=== PATIENT | male | born 1975 | race Caucasian/White ===

== ENCOUNTER 2024-08-27 18:13 | Emergency (ER) | payer OTHER ==
[~2024-08-27] VITALS: Ht 177.8 cm; Wt 84.1 kg
[2024-08-27 18:15] VITALS: TEMP 97.8
--- NOTE | 2024-08-27 18:45 | Physician Documentation ---
History of Present Illness ~ Chief Complaint: Head Injury Stated Complaint: W/C HEAD LAC Time Seen by MD: 18:44 OK to notify your PCP?: Yes Primary Medical Doctor: NONE HPI Patient presents to the emergency room with head laceration to his scalp after striking a door while getting up into a work vehicle. No loss of consciousness. No vomiting. Tetanus reported to be within the last five years. Denies neck pain. No other injuries Tetanus within 5 years?: No Medication Reconciliation Allergies: Coded Allergies: No Known Allergies (Unverified , 04/25/16) Past Medical History Past Medical History: No Pertinent History Past Surgical History: noncontributory Drug Use: none Lives with: Family Lives In: Home Occupation: employed Review of Systems ROS All review of systems negative except as per HPI Physical Exam Vital Signs: Temperature: 97.8, Source: Temporal, Heart Rate: 89, Respiratory Rate: 18, BP: 153/87, Pulse Oximetry: 98, Weight: 84.090 Physical Exam General: Patient is awake, alert, oriented x4 in no acute distress and well appearing.~ Head: Normocephalic with 8 cm full-thickness laceration to the right scalp with no active bleeding Eyes: Conjunctival normal. EOMI. PERRL. ENT: Mucous membranes moist. No floyd signs no raccoon eyes no hemotympanum no rhinorrhea Neck: Supple, trachea is midline. No cervical midline tenderness Chest: Clear to auscultation bilaterally without rales, rhonchi, or wheezes. There is no accessory muscle use or retractions. Cardiac: RRR without murmurs, gallops, or rubs. Procedures Procedures Laceration repair: Status post informed verbal consent patient was sterilely cleaned and draped. 1% lidocaine with epinephrine was utilized to anesthetize laceration using 3 cc. Patient's wound was thoroughly irrigated with sterile saline. Seven agnela placed to approximate wound edges. Patient tolerated procedure well without complication. Total time of procedure 7 minutes. Progress Results/Orders Results/Orders Vital Signs 08/27/24 08/27/24 08/27/24 18:15 18:48 18:50 Temp 97.8 Pulse 89 77 Resp 18 15 B/P (MAP) 153/87 127/84 (98) Pulse Ox 98 97 O2 Flow Rate 0 Medical Decision Making Findings Patient presented to the emergency room with head laceration as per HPI. Differentials include but are not limited to laceration, fracture, intracranial bleed such as epidural bleed, subdural bleed, intraparenchymal bleed. Physical exam is reassuring and he had not feel he requires CT scan. Laceration cleaned and wounds approximated using seven angela. Wound care as well as ER precautions regarding symptoms of infection discussed. The need to have angela removed also discussed. Departure Disposition: HOME / SELF CARE / HOMELESS Impression: Primary Impression: Laceration Condition: Stable Discharge Instructions: Sutures, [place], or Adhesive Wound Closure Additional Instructions: Have angela removed in 5-7 days. Referrals: NO PRIMARY CARE PROVIDER (PCP) Education Educated: Patient Educated regarding: diagnosis, treatment, need for follow up Signature Scribe Signature: No scribe Attestation: The note accurately reflects work and decisions made by me.Damir Jimenez MD 08/27/24 19:03 DAMIR JIMENEZ MD August 27, 2024 18:45
[2024-08-27] MEDS: bacitracin 15gm ointment TP ONE (19:13)
[2024-08-27 19:16] VITALS: BP 131/89; PULSE 78; RESP 16; O2SAT 97
== END 2024-08-27 19:21 | disposition home or self-care (01) ==
LOC: ER 18:13
DX: S01.01XA Laceration without foreign body of scalp, initial encounter (principal); W22.09XA Striking against other stationary object, initial encounter; Y93.89 Activity, other specified; Y92.89 Other specified places as the place of occurrence of the external cause; Y99.8 Other external cause status
CPT/HCPCS: 12004; 99282; J7030; A6449